=== PATIENT | male | born 1935 | race Caucasian/White ===

== ENCOUNTER 2023-12-27 18:13 | Emergency (ER) | payer OTHER ==
[2023-12-27] MEDS ORDERED: MORPHINE 2 MG/ML SYR ONE (18:43)
[2023-12-27] MEDS ORDERED: NA CHLORIDE 0.9% 1,000 ML ONE ×2 (18:43→19:40)
[2023-12-27 18:59] LABS: Absolute Lymphocytes (CBC) 0.5 K/uL (0.7-4.9); Absolute Monocytes 1.1 K/uL (0.1-1.3); Absolute Neutrophil 10.5 K/uL (1.8-8.0); Basophils % 0.3 % (0-1.3); Hematocrit 33.2 % (39.6-49.0); Hemoglobin 10.6 g/dL (13.6-17.9); Lymphocytes % 4.1 % (15.3-44.8); MPV 8.3 fL (7.6-11.3); Monocytes % 8.8 % (3.3-12.3); Neutrophils % 86.8 % (41.7-73.7); Platelets 208 thou/uL (152-406); RBC Red Blood Cell Count 3.32 M/uL (4.33-5.43); Red Cell Distribution Width 15.7 % (12.1-15.2)
[2023-12-27] MEDS ORDERED: DIAZEPAM 5 MG TABLET ONE (19:06)
[2023-12-27 19:15] LABS: Anion Gap 16.4 mEq/L (5.0-15.0); Potassium 4.4 mEq/L (3.5-5.1)
[2023-12-27] MEDS ORDERED: CEFTRIAXONE 1000 MG/VIAL ONE (19:40)
[2023-12-27] MEDS ORDERED: NA CHLORIDE 0.9% 500 ML ONE (19:40)
--- NOTE | 2023-12-27 20:16 | RAD REPORT ---
[facility] 7[facility]37 pm CLINICAL HISTORY: fall COMPARISON: Chest Single View dated 06/17/2023; Chest Single View dated 06/16/2023; CHEST PA AND LAT 2 V IEW dated 03/25/2014; Head C Spine Cap W Con dated 12/27/2023 TECHNIQUE: Portable AP view of the chest. FINDINGS: Progressive perihilar patchy alveolar and interstitial opacities more so on the right. Sma ll layering effusions again seen. No pneumothorax. The cardiomediastinal contours are unchanged. IMPRESSION: Progressive perihilar patchy alveolar and interstitial opacities with small bilateral ef fusions, concerning for worsening edema.
--- NOTE | 2023-12-27 20:18 | RAD REPORT ---
EXAM DESCRIPTION: Pelvis - 12/27/2023 7:37 pm CLINICAL HISTORY: fall COMPARISON: Head C Spine Cap W Con dated 12/27/2023 TECHNIQUE: Single AP view of the pelvis. FINDINGS: Impacted left femoral neck fracture. Pelvic ring is intact. Right femoral neck is intact. Bilateral hip joint [id number] degenerative changes worse on the right. Vascular calcifications . No focal suspicious osseous lesion. . IMPRESSION: Impacted left femoral neck fracture.
--- NOTE | 2023-12-27 20:19 | RAD REPORT ---
EXAM DESCRIPTION: RAD - Femur Left - 12/27/2023 7:37 pm CLINICAL HISTORY: fall COMPARISON: No comparisons TECHNIQUE: Left femur, 2 views. FINDINGS: Impacted left femoral neck fracture. There is no dislocation or periosteal reaction noted . No acute or suspicious bony finding. IMPRESSION: Impacted left femoral fracture.
[2023-12-27 20:41] LABS: Anisocytosis 1+; Blood Morphology Comment NOTED (NOT SEEN); Platelet Estimate ADEQ; Poikilocytosis 1+; White Blood Cell Scan OK (OK)
[2023-12-27] MEDS ORDERED: MORPHINE 4 MG/ML SYR ONE (21:11)
--- NOTE | 2023-12-27 21:20 | RAD REPORT ---
EXAM DESCRIPTION: CT - Head C Spine Cap W Con - 12/27/2023 8:26 pm CLINICAL HISTORY: fall COMPARISON: Femur Left dated 12/27/2023; Pelvis dated 12/27/2023; Chest Single View dated 12/27/2023 TECHNIQUE: Head and cervical spine CT images were obtained without IV contrast. Chest, abdomen, and pelvis CT images were obtained following intravenous administration of iodinated contrast. Multiplana r reformats were generated and reviewed. All CT scans are performed using dose optimization technique as appropriate and may include automated exposure control or mA/KV adjustment according to patient size. FINDINGS: CT HEAD: No intracranial hemorrhage, mass effect, or edema. No evidence of acute territorial infarct. No midli ne shift or abnormal fluid collection. Mild diffuse parenchymal volume loss. No hydrocephalus. Basal cisterns are patent. Mastoid aircells and paranasal sinuses are clear. No acute skull fracture. CT CERVICAL SPINE: No acute cervical spine fracture or subluxation. Vertebral body heights are well maintained. Moderate multilevel degenerative changes. . No hyperattenuating canal hematoma. Prevertebral and paraspinous soft tissues are unremarkable. CT CHEST: No pneumothorax, or evidence of pulmonary contusion. Moderate cardiomegaly. Patchy airspace opacities in the left apex and central right lung. Dependent segmental opacities in the lower lobes may reflec t atelectasis. Bilateral pleural effusions, moderate on the left and large on the right, with some ev idence of loculation. Pleural thickening and mild enhancement also noted on the left. No mediastinal hematoma and the aorta and pulmonary arteries are unremarkable. No chest will mass or abnormal axilla ry finding. No displaced rib fracture or other significant bony finding. CT ABDOMEN/ PELVIS: No evidence of traumatic injury to solid abdominal viscera. Mild hepatomegaly. Left inguinal hernia c ontaining a short segment of the sigmoid colon. Moderate stool burden. Gallbladder and biliary tree a re unremarkable. No bowel injury or significant finding. No free air, free fluid or abnormal fat stra nding. No urinary bladder abnormality. Left femoral neck fracture at the head/neck junction. Geographic sclerotic reason the subchondral sup erior left femoral head suggesting sequelae of avascular necrosis. IMPRESSION: Left femoral neck fracture at the head/neck junction. Patchy bilateral airspace opacities in the left apex and central right lung, may reflect regional burt ma or multifocal infectious/inflammatory process. Bilateral pleural effusions larger on the right, with some evidence of loculation bilaterally. Pleura l thickening and mild enhancement also noted on the left. Findings raise concern for infectious seque lae or empyema. Other incidental findings as above.
[2023-12-27] MEDS ORDERED: Meropenem 1000 MG/VIAL IV ONE (22:21)
[2023-12-27] MEDS ORDERED: NA CHLORIDE 0.9% 100 ML ONE (22:22)
--- NOTE | 2023-12-27 22:40 | EDPHYS ---
Physician Documentation [facility] Name: Israel Palacio Age: 88 yrs Sex: Male : 1935 Arrival Date: 12/27/2023 Time: 18:13 Bed 4 Private MD: ED Physician Dane Galo HPI: 12/26 21:02 This 88 yrs old Male presents to ER via EMS with complaints of Fall Injury. ec2 21:02 Patient arrives today for evaluation after ground-level fall. Patient reportedly had ec2 fallen yesterday approximately 23 hours prior to arrival. Patient has been down the entire time and is soiled himself. Patient complaining of left hip pain.. Historical: - Allergies: 18:35 PENICILLINS; ap3 18:35 Sulfa (Sulfonamide Antibiotics); ap3 - Home Meds: 18:35 diltiazem HCl 180 mg oral Capsule, ER 24 hr [Active]; warfarin 5 mg Oral tablet ap3 [Active]; lovastatin 40 mg Oral tablet [Active]; diazepam 2 mg Oral tablet [Active]; tamsulosin 0.4 mg oral capsule [Active]; Vitamin D Oral [Active]; Vitamin B-12 Oral [Active]; - Immunization history:: Adult Immunizations unknown. - Infectious Disease History:: Denies. - Social history:: Smoking status: Patient denies any tobacco usage or history of. Patient uses alcohol, occasionally. ROS: 21:02 Constitutional: as per hpi ec2 Exam: 21:02 Constitutional: GEN: No acute distress HEENT: -Head: no deformities -Eyes: EOMI CV: ec2 regular rate LUNGS: no respiratory distress ABD: non-tender SKIN: no wounds appreciated MSK: No C/T/L spine deformities RUE w/o bony deformity LUE w/o bony deformity RLE w/o bony deformity LLE TTP to the left hip NEURO: moves all extremities equally, GCS 15 (E4, V5, M6) Vital Signs: 18:31 Pulse 84; Resp 21; Pulse Ox 91% on 4 lpm NC; Weight 72.57 kg; Height 5 ft. 10 in. ; ap3 Pain 7/10; 18:43 BP 124 / 89; Pulse 91; Resp 21; Pulse Ox 91% on 4 lpm NC; ap3 19:10 BP 136 / 76; Pulse 84; Resp 17 S; Pulse Ox 92% on R/A; ha1 19:11 Temp 97.4(TE); ap3 20:03 BP 141 / 95; Pulse 79; Resp 17 S; Pulse Ox 93% on 4 lpm NC; ha1 22:10 BP 144 / 96; Pulse 84; Resp 17 S; Pulse Ox 95% on R/A; ha1 23:10 BP 154 / 88; Pulse 81; Resp 18 S; Pulse Ox 94% on 5 lpm NC; ha1 18:31 Body Mass Index 22.96 (72.57 kg, 177.8 cm) ap3 18:31 Pain Scale: Adult ap3 Brittany Coma Score: 18:40 Eye Response: spontaneous(4). Motor Response: obeys commands(6). Verbal Response: ap3 oriented(5). Total: 15. Trauma Score (Adult): 18:40 Eye Response: spontaneous(1); Verbal Response: oriented(1); Motor Response: obeys ap3 commands(2); Systolic BP: > 89 mm Hg(4); Respiratory Rate: 10 to 29 per min(4); Brittany Score: 15; Trauma Score: 12 MDM: 18:18 Patient medically screened. ec2 18:35 ED course: EKG independently reviewed and interpreted by me, shows atrial fibrillation, ec2 rate of 93, no acute ST send elevations, nonactionable intervals, marked motion artifact noted. 19:23 ED course: CBC is pertinent for slight leukocytosis. Will add on blood cultures as well ec2 as lactic acid, okay the patient additional crystalloid. . 12/26 18:35 Order name: Basic Metabolic Panel; Complete Time: 19:21 ec2 12/26 18:35 Order name: CBC with Diff; Complete Time: 22:29 ec2 12/26 18:35 Order name: Type And Screen; Complete Time: 20:26 ec2 12/26 18:35 Order name: CK; Complete Time: 19:21 ec2 12/26 19:22 Order name: Blood Culture Adult (2) ec2 12/26 19:22 Order name: Lactate w/ 2H reflex if indic.; Complete Time: 20:36 ec2 12/26 19:53 Order name: ABO/RH no charge; Complete Time: 20:26 EDMS 12/26 20:41 Order name: CBC Smear Scan; Complete Time: 22:29 EDMS 12/26 22:35 Order name: Ghost Lactate-NO COLLECT Timer EDMS 12/26 18:35 Order name: CT Traumagram (Head C Spine CAP W Con); Complete Time: 22:29 ec2 12/26 18:35 Order name: XRAY Chest (1 view); Complete Time: 20:26 ec2 12/26 18:35 Order name: Femur Left XRAY; Complete Time: 20:26 ec2 12/26 18:35 Order name: Pelvis XRAY; Complete Time: 20:26 ec2 12/26 18:35 Order name: Labs collected and sent; Complete Time: 18:54 ec2 Administered Medications: 18:47 CANCELLED (Physician Discretion): morphineor iv 2 mg IVP once over 4 mins ec2 19:10 Drug: NS 0.9% IV 1000 ml IV at 1 bolus Per protocol; 1000 mL bolus Route: IV; Rate: 1 ap3 bolus; Site: right antecubital; 22:00 Follow up: Response: No adverse reaction; IV Status: Completed infusion; IV Intake: ha1 1000ml 19:10 Not Given (Patient Refused): diazepam2 mg IVP once ap3 19:33 Drug: morphine IVP or IV 2 mg IVP once over 4 mins Route: IVP; Infused Over: 4 mins; ha1 Site: right forearm; 20:03 Follow up: Response: No adverse reaction; Pain is decreased; RASS: Alert and Calm (0) ha1 20:35 Drug: Rocephin IV 1 grams IV at calculated rate once; Given slow IV push per pharmacy ha1 instructions Route: IV; Rate: calculated rate; Site: right forearm; 21:00 Follow up: Response: No adverse reaction; IV Status: Completed infusion; IV Intake: [id number] 20:35 Drug: NS 0.9% IV 1500 ml IV at 1 bolus Per protocol; 1000 mL bolus Route: IV; Rate: 1 ha1 bolus; Site: right forearm; 23:55 Follow up: Response: No adverse reaction; IV Status: Completed infusion; IV Intake: ha1 1500ml 21:20 Drug: morphine IVP or IV 4 mg IVP once over 4 mins Route: IVP; Infused Over: 4 mins; ha1 Site: right forearm; 21:50 Follow up: Response: No adverse reaction; RASS: Alert and Calm (0) pc2 22:30 Drug: Meropenem IV 1 grams IV at per protocol once; (mix in NS 100 mL) Route: IV; Rate: pc2 per protocol; Site: right forearm; 23:00 Follow up: Response: No adverse reaction; IV Status: Completed infusion; IV Intake: ha1 100ml Disposition Summary: 12/27/23 22:39 Transfer Ordered Notes: Transfer Location: [facility] richard Reason: Higher level of care richard Condition: Fair richard Problem: new richard Symptoms: are unchanged richard Accepting Physician: ESTEBAN ZAMBRANO(12/28/23 00:02) ha1 Diagnosis - Pneumonia due to other specified bacteria - BILATERAL, RIGHT GREATER THAN LEFT richard - Pleural effusion, not elsewhere classified richard - Elevated white blood cell count richard - Hypoxemia richard - Nonrheumatic aortic (valve) stenosis richard - Displaced fracture of base of neck of left femur richard Discharge Instructions: - Discharge Summary Sheet kmf Forms: - Medication Reconciliation Form kmf - SBAR form kmf Signatures: Dispatcher [employer] EDDane Larry MD MD cha Prokisch, Amanda RN RN ap3 Marjan Mathews, OLGA RN ha1 Driss Velazquez MD MD ec2 Rebecca Parekh, RN RN pc2 Corrections: (The following items were deleted from the chart) 18:35 18:35 BASIC METABOLIC PANEL+C.LAB.BRZ ordered. EDMS EDMS 18:35 18:35 CBC+H.LAB.BRZ ordered. EDMS EDMS 18:35 18:35 TYPE AND SCREEN+BB.LAB.BRZ ordered. EDMS EDMS 18:35 18:35 Urinalysis+U.LAB.BRZ ordered. EDMS EDMS 18:35 18:35 CREATINE PHOSPHOKINASE+C.LAB.BRZ ordered. EDMS EDMS 18:35 18:35 Head C Spine CAP W Con+CT.RAD.BRZ ordered. EDMS EDMS 18:36 18:36 Chest Single View+RAD.RAD.BRZ ordered. EDMS EDMS 18:36 18:36 Femur Left+RAD.RAD.BRZ ordered. EDMS EDMS 18:36 18:36 Pelvis+RAD.RAD.BRZ ordered. EDMS EDMS 18:47 18:42 morphine IVP or IV 2 mg IVP once over 4 mins ordered. ec2 ec2 23: 22:39 TO KENYA ramos cha 12/27 00:02 12/26 23:07 TO KENYA ramos 1
--- NOTE | 2023-12-27 22:40 | ER ---
Nurse's Notes [facility] Name: Israel Palacio Age: 88 yrs Sex: Male : 1935 Arrival Date: 12/27/2023 Time: 18:13 Bed 4 Private MD: Diagnosis: Pneumonia due to other specified bacteria-BILATERAL, RIGHT GREATER THAN LEFT;Pleural effusion, not elsewhere classified;Elevated white blood cell count;Hypoxemia;Nonrheumatic aortic (valve) stenosis;Displaced fracture of base of neck of left femur Presentation: 12/26 18:31 Chief complaint: EMS states: patient fell yesterday at 0 and was on the ground until ap3 the son went to his residence and found him. patient reports he hit his head, and his left forearm on a treadmill. patient currently complains of pain that he rates as a 7/10 on the pain scale, but reports it is a 10/10 at its worst. Coronavirus screen: At this time, the client does not indicate any symptoms associated with coronavirus-19. Ebola Screen: No symptoms or risks identified at this time. Initial Sepsis Screen: Does the patient meet any 2 criteria? RR > 20 per min. Does the patient have a suspected source of infection? No. Patient's initial sepsis screen is negative. Risk Assessment: Do you want to hurt yourself or someone else? Patient reports no desire to harm self or others. Onset of symptoms is unknown. Care prior to arrival: Medication(s) given: Normal saline infusion, 250 Tylenol, 1000mg IV tylenol X's 1 IV initiated. 20 GA, in the right antecubital area, Oxygen administered. via a non-rebreather mask. 18:31 Method Of Arrival: EMS: [facility] ap3 18:31 Acuity: DOMINGO 2 ap3 Triage Assessment: 18:38 General: Appears uncomfortable, Behavior is cooperative, appropriate for age. Pain: ap3 Complains of pain in left hip and left arm Pain currently is 7 out of 10 on a pain scale. at worst was 10 out of 10 on a pain scale. Pain began over the last 24hours. Neuro: Level of Consciousness is awake, alert, obeys commands, Oriented to person, place, time, situation, Speech is normal. Cardiovascular: Patient's skin is warm and dry. Respiratory: Airway is patent Respiratory effort is even, unlabored, Respiratory pattern is regular, symmetrical, tachypnea. Derm: Wound noted left hip and left arm. Historical: - Allergies: 18:35 PENICILLINS; ap3 18:35 Sulfa (Sulfonamide Antibiotics); ap3 - Home Meds: 18:35 diltiazem HCl 180 mg oral Capsule, ER 24 hr [Active]; warfarin 5 mg Oral tablet ap3 [Active]; lovastatin 40 mg Oral tablet [Active]; diazepam 2 mg Oral tablet [Active]; tamsulosin 0.4 mg oral capsule [Active]; Vitamin D Oral [Active]; Vitamin B-12 Oral [Active]; - Immunization history:: Adult Immunizations unknown. - Infectious Disease History:: Denies. - Social history:: Smoking status: Patient denies any tobacco usage or history of. Patient uses alcohol, occasionally. Screenin:40 [facility] ED Fall Risk Assessment (Adult) History of falling in the last 3 months, ap3 including since admission Yes- single mechanical fall (1 pt) Confusion or Disorientation No (0 pts) Intoxicated or Sedated No (0 pts) Impaired Gait Yes (1 pt) Mobility Assist Device Used No (0 pt) Altered Elimination No (0 pt) Score/Fall Risk Level 3 or more points = High Risk Oriented to surroundings, Maintained a safe environment, Educated pt \T\ family on fall prevention, incl call for assistance when getting out of bed, Assessed \T\ reinforced patient's understanding of fall precautions, Provided non-skid footwear, Hourly rounding (assess needs \T\ fall precautionary measures) done, Used ambulatory aids as needed (educated on \T\ assisted with), Used gait belt as appropriate Implemented a Fall Risk Plan of Care, Apply high fall risk patient identification: yellow non skid footwear/ fall signage, Remained w/in arm's length of patient and in sight while toileting, Offered frequent toileting (1:1 observation), Remained with patient while ambulating, Utilized family, sitter, or virtual caddy master as indicated. Abuse screen: Denies threats or abuse. Nutritional screening: No deficits noted. Tuberculosis screening: No symptoms or risk factors identified. Primary Survey: 18:40 NO uncontrolled hemorrhage observed. A: The client is awake and alert. The airway is ap3 patent. Breathing/Chest:. 18:41 Circulation: Hemorrhage: No external hemorrhage noted. Skin color: pink, Skin ap3 temperature: warm, Cardiac rhythm: atrial fibrillation. Disability Client is alert. Exposure/Environment: All clothing and personal items were removed. There is no evidence of uncontrolled external bleeding. left forearm skin tear, left hip wound A warming method has been applied: A warm blanket has been provided to the patient. 19:00 Reassessment Alertness and Airway: Airway Patent Breathing: Spontaneous respiratory ha1 effort, equal unlabored respirations, breath sounds clear bilaterally, regular pattern with symmetrical chest rise and fall. Respiratory effort Spontaneous. Assessment: 19:10 General: Appears uncomfortable, Behavior is calm, cooperative. Pain: Complains of pain ha1 in left arm and left hip Pain does not radiate. Pain currently is 9 out of 10 on a pain scale. Quality of pain is described as aching, sharp, shooting, Pain began suddenly, Aggravated by increased activity, repositioning. Neuro: Level of Consciousness is awake, alert, obeys commands, Oriented to person, place, time, situation. Cardiovascular: Capillary refill < 3 seconds Patient's skin is warm and dry. Respiratory: Airway is patent Respiratory effort is even, unlabored, Respiratory pattern is regular, symmetrical. Derm: Skin is fragile, Skin is moist, Skin is normal, Bruising that is bright red, dark purple, on left hip and left arm. Musculoskeletal: Circulation, motion, and sensation intact. 20:05 Reassessment: Patient and/or family updated on plan of care and expected duration. Pain ha1 level reassessed. Patient is alert, oriented x 3, equal unlabored respirations, skin warm/dry/pink. pain 7/10. 21:10 Reassessment: Patient and/or family updated on plan of care and expected duration. Pain ha1 level reassessed. Patient is alert, oriented x 3, equal unlabored respirations, skin warm/dry/pink. 22:07 Reassessment: Patient and/or family updated on plan of care and expected duration. Pain ha1 level reassessed. Patient is alert, oriented x 3, equal unlabored respirations, skin warm/dry/pink. 23:10 Reassessment: Patient and/or family updated on plan of care and expected duration. Pain ha1 level reassessed. Patient is alert, oriented x 3, equal unlabored respirations, skin warm/dry/pink. 23:12 Reassessment: report given to OLGA Patton. ha1 Vital Signs: 18:31 Pulse 84; Resp 21; Pulse Ox 91% on 4 lpm NC; Weight 72.57 kg; Height 5 ft. 10 in. ; ap3 Pain 7/10; 18:43 BP 124 / 89; Pulse 91; Resp 21; Pulse Ox 91% on 4 lpm NC; ap3 19:10 BP 136 / 76; Pulse 84; Resp 17 S; Pulse Ox 92% on R/A; ha1 19:11 Temp 97.4(TE); ap3 20:03 BP 141 / 95; Pulse 79; Resp 17 S; Pulse Ox 93% on 4 lpm NC; ha1 22:10 BP 144 / 96; Pulse 84; Resp 17 S; Pulse Ox 95% on R/A; ha1 23:10 BP 154 / 88; Pulse 81; Resp 18 S; Pulse Ox 94% on 5 lpm NC; ha1 18:31 Body Mass Index 22.96 (72.57 kg, 177.8 cm) ap3 18:31 Pain Scale: Adult ap3 Brittany Coma Score: 18:40 Eye Response: spontaneous(4). Motor Response: obeys commands(6). Verbal Response: ap3 oriented(5). Total: 15. Trauma Score (Adult): 18:40 Eye Response: spontaneous(1); Verbal Response: oriented(1); Motor Response: obeys ap3 commands(2); Systolic BP: > 89 mm Hg(4); Respiratory Rate: 10 to 29 per min(4); Brittany Score: 15; Trauma Score: 12 ED Course: 18:15 Patient arrived in ED. ap3 18:18 Driss Velazquez MD is Attending Physician. ec2 18:31 Martha Miller RN is Primary Nurse. ap3 18:35 Triage completed. ap3 18:40 Oxygen administration via nasal cannula \T\ 4L/min. Thermoregulation: warm blanket given ap3 to patient. 18:40 Arm band placed on right wrist. ap3 18:43 Patient has correct armband on for positive identification. Placed in gown. Bed in low ap3 position. Call light in reach. Side rails up X2. Adult w/ patient. Provided Education on: use of call light and fall risk education. Client placed on continuous cardiac and pulse oximetry monitoring. NIBP monitoring applied. supervisor slitting and shipping on. Pulse ox on. NIBP on. 18:45 EKG done, by ED staff, reviewed by Driss Velazquez MD. ap3 18:54 Initial lab(s) drawn, by me, sent to lab. ap3 19:00 Maintain EMS IV. Dressing intact. Good blood return noted. Site clean \T\ dry. Gauge \T\ pastor 1 site: 20 RFA. Flushed with 10 mL NS. 19:24 X-ray(s) taken. pc2 19:39 XRAY Chest (1 view) In Process Unspecified. EDMS 19:39 Femur Left XRAY In Process Unspecified. EDMS 19:39 Pelvis XRAY In Process Unspecified. EDMS 20:10 Lactate w/ 2H reflex if indic. Sent. ha1 20:10 Blood Culture Adult (2) Sent. ha1 20:28 CT Traumagram (Head C Spine CAP W Con) In Process Unspecified. EDMS 21:08 Attending Physician role handed off by Driss Velazquez MD richard 21:08 Dane Galo MD is Attending Physician. richard 22:40 dane galo with Jen \T\ [facility] [place] 22:42 pt was accepted to [facility] by Dr. Natasha Padgett \T\ [id number]. Pt will go to the ER. AOC given by [facility] Jen Victor Number for nurse to nurse report [phone]. [facility] to transfer pt. ems declined due too already being on a transfer. 23:58 No provider procedures requiring assistance completed. ha1 12/27 00:00 Patient transferred, IV remains in place. ha1 Administered Medications: 12/26 18:47 CANCELLED (Physician Discretion): morphineor iv 2 mg IVP once over 4 mins ec2 19:10 Drug: NS 0.9% IV 1000 ml IV at 1 bolus Per protocol; 1000 mL bolus Route: IV; Rate: 1 ap3 bolus; Site: right antecubital; 22:00 Follow up: Response: No adverse reaction; IV Status: Completed infusion; IV Intake: ha1 1000ml 19:10 Not Given (Patient Refused): diazepam2 mg IVP once ap3 19:33 Drug: morphine IVP or IV 2 mg IVP once over 4 mins Route: IVP; Infused Over: 4 mins; ha1 Site: right forearm; 20:03 Follow up: Response: No adverse reaction; Pain is decreased; RASS: Alert and Calm (0) ha1 20:35 Drug: Rocephin IV 1 grams IV at calculated rate once; Given slow IV push per pharmacy ha1 instructions Route: IV; Rate: calculated rate; Site: right forearm; 21:00 Follow up: Response: No adverse reaction; IV Status: Completed infusion; IV Intake: [id number] 20:35 Drug: NS 0.9% IV 1500 ml IV at 1 bolus Per protocol; 1000 mL bolus Route: IV; Rate: 1 ha1 bolus; Site: right forearm; 23:55 Follow up: Response: No adverse reaction; IV Status: Completed infusion; IV Intake: ha1 1500ml 21:20 Drug: morphine IVP or IV 4 mg IVP once over 4 mins Route: IVP; Infused Over: 4 mins; ha1 Site: right forearm; 21:50 Follow up: Response: No adverse reaction; RASS: Alert and Calm (0) pc2 22:30 Drug: Meropenem IV 1 grams IV at per protocol once; (mix in NS 100 mL) Route: IV; Rate: pc2 per protocol; Site: right forearm; 23:00 Follow up: Response: No adverse reaction; IV Status: Completed infusion; IV Intake: ha1 100ml Medication: 23:59 VIS not applicable for this client. ha1 Intake: 21:00 IV: 50ml; Total: 50ml. ha1 22:00 IV: 1000ml; Total: 1050ml. ha1 23:00 IV: 100ml; Total: 1150ml. ha1 23:55 IV: 1500ml; Total: 2650ml. ha1 Outcome: 22:39 ER care complete, transfer ordered by MD. ramos 12/27 00:00 Transferred by ground EMS to [facility], Transfer form completed. X-rays sent ha1 w/ patient. Condition: stable 00:02 Patient left the ED. ha1 Signatures: Dispatcher [employer] Dane Saavedra MD MD cha Prokisch, Amanda, RN RN ap3 Marjan Mathews RN RN ha1 Driss Velazquez MD MD ec2 Forrester, Kelsey Maroul [facility] Rebecca Parekh, RN RN pc2 Corrections: (The following items were deleted from the chart) 00:11 12/26 23:20 dane galo with Jen \T\ [facility] kmf kmf
[2023-12-28 00:42] VITALS: TEMP 97.4
[2023-12-28 00:47] VITALS: BP 154/88; O2SAT 94
--- NOTE | 2023-12-28 16:58 | EKG ---
Test Date: 2023-12-27 Test Time: 18:27:21 Coke Drawer: ALP MEASUREMENT RESULTS: Intervals: Rate: 93 LA: QRSD: 140 QT: 434 QTc: 539 Mead: P: LA: QRS: -5 T: 62 INTERPRETIVE STATEMENTS: Atrial fibrillation Left bundle branch block Abnormal ECG Compared to ECG 06/16/2023 09:06:04 Left bundle-branch block now present Electronically Signed On 12-28-23 16:56:09 CDT by Noah Millan
== END 2023-12-28 00:02 | disposition short-term general hospital (02) ==
LOC: ER 18:13
DX: S72.042A Displaced fracture of base of neck of left femur, initial encounter for closed fracture (principal); J15.8 Pneumonia due to other specified bacteria; J91.8 Pleural effusion in other conditions classified elsewhere; R09.02 Hypoxemia; D72.829 Elevated white blood cell count, unspecified; I35.0 Nonrheumatic aortic (valve) stenosis; W18.30XA Fall on same level, unspecified, initial encounter; Z79.01 Long term (current) use of anticoagulants
CPT/HCPCS: 96365; 96367; 96361; 93005; 87040 ×2; 85025; 80048; 36415; 86900; 86850; 82550; 86901; 83605 ×2; 70450; 72125; 71260; 74177; 71045; 72170; 73552; 96375; 99285; Q9967; J2270; J2185; J7040; J7030 ×2; J0696

== ENCOUNTER 2024-01-12 09:37 | Emergency (ER) | payer OTHER ==
[2024-01-12] MEDS ORDERED: MORPHINE 2 MG/ML SYR ONE (10:24)
[2024-01-12 10:34] LABS: Absolute Basophils 0.1 K/uL (0-0.5); Absolute Monocytes 1.3 K/uL (0.1-1.3); Absolute Neutrophil 14.4 K/uL (1.8-8.0); Basophils % 0.3 % (0-1.3); Eosinophils % 0.1 % (0-4.4); Hematocrit 11.2 % (39.6-49.0); MCH 31.9 pg (27.0-35.0); MCHC 30.7 g/dL (32.0-36.0); MCV 103.8 fL (80-100); MPV 7.9 fL (7.6-11.3); Monocytes % 7.7 % (3.3-12.3); Neutrophils % 85.9 % (41.7-73.7); Nucleated RBC Absolute Count 0.4 (0-0); Nucleated Red Blood Cells % 2.2 % (0-0); Platelets 282 thou/uL (152-406); RBC Red Blood Cell Count 1.08 M/uL (4.33-5.43); Red Cell Distribution Width 20.1 % (12.1-15.2)
[2024-01-12 10:36] LABS: Hemoglobin 3.4 g/dL (13.6-17.9)
[2024-01-12 10:40] LABS: PTT, Activated Partial Thromb 46.3 SECONDS (24.3-36.9); Protime INR 5.05
[2024-01-12 10:42] LABS: SARS-CoV-2 Antigen CONTROL BLUE LINE VIS/BG OK; SARS-CoV-2 Antigen Rapid Res Negative (Negative)
[2024-01-12 10:50] LABS: Sqamous Epithelial None Seen /HPF (None Seen); Urine Bacteria None Seen /HPF (<20); Urine Bilirubin NEGATIVE (Negative); Urine Blood Negative (Negative); Urine Clarity Turbid (Clear); Urine Color Yellow (Yellow); Urine Culture Reflex Order NOT NEEDED; Urine Glucose NEGATIVE (Negative); Urine Ketones NEGATIVE (Negative); Urine Microscopic Reflex YN ORDER UMIC; Urine Mucus Slight /HPF (None Seen); Urine Nitrite NEGATIVE (Negative); Urine Protein TRACE (Negative); Urine RBC <5 /HPF (None Seen); Urine Urobilinogen 2+ (Normal); Urine WBC <5 /HPF (<5)
[2024-01-12 11:01] LABS: Band Neutrophils 2 % (0-1); Differential Total Cells Count 100; Lymphocytes 6 % (15-42); Monocytes 1 % (0-10); Nucleated Red Blood Cells 1 /100WBC; Platelet Estimate ADEQ; Platelets, Giant NOTED; Segmented Neutrophils 91 % (40-80)
[2024-01-12 11:02] LABS: Anisocytosis 1+; Blood Morphology Comment NOTED (NOT SEEN); Hypochromasia 2+; Polychromasia 2+
--- NOTE | 2024-01-12 11:18 | RAD REPORT ---
EXAM DESCRIPTION: CT - Chest For Pe Angio - 01/12/2024 10:55 am CLINICAL HISTORY: Chest pain COMPARISON: None. TECHNIQUE: Dynamically enhanced axial 3 mm thick images of the chest were obtained during administra tion of 100 mL Isovue 370 IV contrast. Coronal and oblique reconstruction images were generated and r eviewed. Exam utilizes a protocol for optimal evaluation of pulmonary arterial tree. Maximum intensity projections 3D imaging was utilized All CT scans are performed using dose optimization technique as appropriate and may include automated exposure control or mA/KV adjustment according to patient size. FINDINGS: Recent aortic valve replacement. A pulmonary embolus is not seen. A thoracic aortic aneurysm is not noted. Small to moderate right hydropneumothorax. Small left pleural effusion. Mild interstitial pulmonary edema. Bilateral lower lobe atelectasis IMPRESSION: Negative for a pulmonary embolism. Small to moderate right hydropneumothorax Mild interstitial pulmonary edema
--- NOTE | 2024-01-12 11:19 | RAD REPORT ---
EXAM DESCRIPTION: Yue Single View01/12/2024 10:30 am CLINICAL HISTORY: Shortness of breath COMPARISON: December 2023 FINDINGS: Aortic valve replacement. Cardiomegaly. Small to moderate right and small left pleural effusions Mild interstitial pulmonary edema
[2024-01-12 11:28] LABS: Albumin 2.2 g/dL (3.4-5.0); Albumin/Globulin Ratio 0.6 (1.1-1.8); Anion Gap 10.7 mEq/L (5.0-15.0); Bilirubin Total 1.2 mg/dL (0.2-1.0); Potassium 3.7 mEq/L (3.5-5.1); Protein, Total 6.2 g/dL (6.4-8.2); Troponin High Sensitivity 14.5 pg/mL (<58.9)
[2024-01-12] MEDS ORDERED: Levofloxacin500mg IV 500 MG/100 ML BAG IV ONE (11:57)
--- NOTE | 2024-01-12 12:10 | EDPHYS ---
Physician Documentation [facility] Name: Israel Palacio Age: 88 yrs Sex: Male : 1935 Arrival Date: 01/12/2024 Time: 09:37 Bed 2 Private MD: ED Physician Miracle Diaz HPI: 01/11 10:01 This 88 yrs old Male presents to ER via EMS with complaints of General Weakness. 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 He is now here locally at rehab facility. Today he was found to have generalized weakness and transient low blood pressure which point local facility activated EMS to bring him to the ER. You currently endorses generalized weakness and nausea but denies any pain or any other symptoms. On review of systems he denies headache, fever, URI symptoms, chest pain, shortness of breath abdominal pain, rash, or any other signs or symptoms on ROS at this time.. Historical: - Allergies: 09:46 PENICILLINS; rs5 09:46 Sulfa (Sulfonamide Antibiotics); rs5 - PMHx: 09:46 Atrial fibrillation; Hypertensive disorder; Anemia; left femur fracture; rs5 - PSHx: 09:46 left hip surgery; aortic valve surgery; rs5 - Immunization history:: Adult Immunizations up to date. - Infectious Disease History:: Denies. - Social history:: Smoking status: Patient/guardian denies using tobacco, but has a distant history of tobacco abuse. ROS: 10:05 Constitutional: Negative for fever, chills, and weight loss, Eyes: Negative for injury, sp3 pain, redness, and discharge, Neck: Negative for injury, pain, and swelling, Cardiovascular: Negative for chest pain, palpitations, and edema, Respiratory: Negative for shortness of breath, cough, wheezing, and pleuritic chest pain, Back: Negative for injury and pain, MS/Extremity: Negative for injury and deformity, Skin: Negative for injury, rash, and discoloration, Psych: Negative for depression, anxiety, suicide ideation, homicidal ideation, and hallucinations, Allergy/Immunology: Negative for hives, rash, and allergies, Endocrine: Negative for neck swelling, polydipsia, polyuria, polyphagia, and marked weight changes, 10:05 All other systems are negative, Exam: 10:05 Constitutional: This is a well developed, well nourished patient who is awake, alert, sp3 and in no acute distress. Head/Face: Normocephalic, atraumatic. Eyes: Pupils equal round and reactive to light, extra-ocular motions intact. Lids and lashes normal. Conjunctiva and sclera are non-icteric and not injected. Cornea within normal limits. Periorbital areas with no swelling, redness, or edema. Neck: Trachea midline, no thyromegaly or masses palpated, and no cervical lymphadenopathy. Supple, full range of motion without nuchal rigidity, or vertebral point tenderness. No Meningismus. Chest/axilla: Normal chest wall appearance and motion. Nontender with no deformity. No lesions are appreciated. Cardiovascular: Regular rate and rhythm with a normal S1 and S2. No gallops, murmurs, or rubs. Normal PMI, no JVD. No pulse deficits. Respiratory: Lungs have equal breath sounds bilaterally, clear to auscultation and percussion. No rales, rhonchi or wheezes noted. No increased work of breathing, no retractions or nasal flaring. Abdomen/GI: Soft, non-tender, with normal bowel sounds. No distension or tympany. No guarding or rebound. No evidence of tenderness throughout. Neuro: Awake and alert, GCS 15, oriented to person, place, time, and situation. Cranial nerves II-XII grossly intact. Motor strength 5/5 in all extremities. Sensory grossly intact. Cerebellar exam normal. Normal gait. Psych: Awake, alert, with orientation to person, place and time. Behavior, mood, and affect are within normal limits. 10:05 Skin: Diffusely pale without rash. 10:25 ECG was reviewed by the Attending Physician. EKG demonstrates atrial fibrillation with sp3 left bundle branch block unchanged from prior EKG dated December 2023. Vital Signs: 09:42 BP 130 / 59; Pulse 93; Resp 17; Pulse Ox 97% on 2 lpm NC; rs5 09:54 Temp 98.7; rs5 13:10 BP 115 / 54; Pulse 74; Resp 19; Temp 96.7(TE); Pulse Ox 100% on 2 lpm NC; rs5 13:30 BP 115 / 59; Pulse 78; Resp 17; Temp 96.9(TE); Pulse Ox 99% on 2 lpm NC; rs5 13:35 BP 112 / 57; Pulse 72; Resp 18; Temp 96.8; Pulse Ox 99% on 2 lpm NC; rs5 13:40 BP 111 / 51; Pulse 77; Resp 18; Temp 96.8(TE); Pulse Ox 100% on 2 lpm NC; rs5 16:30 BP 108 / 61; Pulse 70; Resp 16; Temp 96.8; Pulse Ox 99% ; rs5 16:35 BP 114 / 61; Pulse 74; Resp 17; Temp 96.7; Pulse Ox 99% on 2 lpm NC; rs5 16:45 BP 112 / 65; Pulse 70; Resp 18; Temp 96.7; Pulse Ox 99% on 2 lpm NC; rs5 16:50 BP 107 / 58; Pulse 77; Resp 16; Temp 96.8(O); Pulse Ox 100% ; rs5 16:55 BP 109 / 62; Pulse 77; Resp 17; Temp 96.7; Pulse Ox 100% on 2 lpm NC; rs5 MDM: 09:44 Patient medically screened. sp3 10:05 Data reviewed: vital signs, nurses notes, old medical records, lab test result(s), EKG, sp3 radiologic studies. ED course: 88-year-old male with PMH above and recent surgery now here with generalized weakness. Will obtain full workup including cultures, labs, EKG, CT chest for PE, and general supportive care. Here vital signs are normal. Patient does endorse some nausea but did receive Zofran IV by EMS and is feeling a little bit better. Disposition probable admission once workup is complete and diagnosis is more narrowed. Patient is on enoxaparin at rehab facility to anticoagulate for his atrial fibrillation.. 10:43 ED course: Hemoglobin came back at 3.4. We will transfuse 2 units the patient admitted sp3 after workup is complete.. 12:48 ED course: Patient will be transferred to [facility] for GI evaluation. sp3 Hospitalist here at this facility Dr. Gonzalez evaluated and suggests that he will be more comfortable with GI on the case. After talking to family we feel that it is best to go back to [facility] since they are familiar with his recent surgeries.. 01/11 10:36 Order name: Type And Screen aa5 01/11 09:57 Order name: Blood Culture Adult (2) sp3 01/11 09:57 Order name: CBC with Diff; Complete Time: 11:31 sp3 01/11 09:57 Order name: CMP; Complete Time: 11:31 sp3 01/11 09:57 Order name: Lactate w/ 2H reflex if indic.; Complete Time: 11:31 sp3 01/11 09:57 Order name: Protime (+inr); Complete Time: 11:31 sp3 01/11 09:57 Order name: Ptt, Activated; Complete Time: 11:31 sp3 01/11 09:57 Order name: Urinalysis w/ reflexes; Complete Time: 11:31 sp3 01/11 09:57 Order name: Troponin High Sensitivity; Complete Time: 11:31 sp3 01/11 09:57 Order name: Flu; Complete Time: 11:31 sp3 01/11 09:57 Order name: SARS RAPID; Complete Time: 11:31 sp3 01/11 10:38 Order name: Manual Differential; Complete Time: 11:31 EDMS 01/11 11:39 Order name: Packed RBC Leukored EDMS 01/11 09:57 Order name: Chest Single View XRAY; Complete Time: 11:31 sp3 01/11 10:06 Order name: CT Chest For PE Angio; Complete Time: 11:31 sp3 01/11 13:06 Order name: CT Abd/Pelvis - IV Contrast Only; Complete Time: 14:27 sp3 01/11 09:57 Order name: Cardiac monitoring; Complete Time: 10:24 sp3 01/11 09:57 Order name: EKG - Nurse/Tech; Complete Time: 10:24 sp3 01/11 09:57 Order name: IV Saline Lock - Large Bore; Complete Time: 10:24 sp3 01/11 09:57 Order name: Labs collected and sent; Complete Time: 10:24 sp3 01/11 09:57 Order name: O2 Per Protocol; Complete Time: 10:24 sp3 01/11 09:57 Order name: O2 Sat Monitoring; Complete Time: 10:24 sp3 01/11 09:57 Order name: Vital Signs; Complete Time: 10:24 sp3 01/11 10:37 Order name: Transfuse: 2 units PRBC; Complete Time: 16:50 sp3 Administered Medications: 12:03 Drug: levofloxacin IVPB 500 mg 100 ml IVPB once over 60 mins Volume: 100 ml; Route: rs5 IVPB; Infused Over: 60 mins; Site: left antecubital; 13:05 Follow up: Response: No adverse reaction; IV Status: Completed infusion rs5 15:51 Drug: morphine IVP or IV 4 mg IVP once over 4 mins Route: IVP; Infused Over: 4 mins; rs5 Site: left antecubital; 16:05 Follow up: Response: No adverse reaction; Pain is decreased rs5 Disposition Summary: 01/12/24 12:48 Transfer Ordered Notes: Transfer Location: [facility] sp3 Reason: Higher level of care sp3 Condition: Stable(01/12/24 12:48) sp3 Problem: an acute exacerbation(01/12/24 12:48) sp3 Symptoms: have worsened(01/12/24 12:48) sp3 Accepting Physician: Sco[facility], [facility](01/12/24 17:01) ph Diagnosis - New critical anemia of unknown etiology, leukocytosis/infection of unknown etiology sp3 Forms: - Medication Reconciliation Form sp3 - SBAR form sp3 Critical care time excluding procedures: 10:44 Critical care time: Bedside Care: 15 minutes, Family Intervention: 15 minutes. Total sp3 time: 30 minutes Signatures: Dispatcher [employer] Edie Hayes RN RN ph Miracle Diaz MD MD sp3 Rod Anaya RN RN rs5 Corrections: (The following items were deleted from the chart) 09:58 09:58 BLOOD CULTURE*+BA.LAB.BRZ ordered. EDMS EDMS 09:58 09:58 CBC+H.LAB.BRZ ordered. EDMS EDMS 09:58 09:58 COMPREHENSIVE METABOLIC PANEL+C.LAB.BRZ ordered. EDMS EDMS 09:58 09:58 LACTATE+C.LAB.BRZ ordered. EDMS EDMS 09:58 09:58 PROTIME (+INR)+COAG.LAB.BRZ ordered. EDMS EDMS 09:58 09:58 PTT, ACTIVATED+COAG.LAB.BRZ ordered. EDMS EDMS 09:58 09:58 Urinalysis+U.LAB.BRZ ordered. EDMS EDMS 09:58 09:58 Troponin High Sensitivity+C.LAB.BRZ ordered. EDVT EDMS 09:58 09:58 Chest Single View+RAD.RAD.BRZ ordered. EDVT EDMS 09:58 09:58 Influenza Screen (A \T\ B)+BA.LAB.BRZ ordered. EDVT EDMS 09:58 09:58 SARS-COV-2 Antigen Rapid+I.LAB.BRZ ordered. EDVT EDMS 10:26 10:05 ED course: 88-year-old male with PMH above and recent surgery now here with sp3 generalized weakness. Will obtain full workup including cultures, labs, EKG, CT chest for PE, and general supportive care. Here vital signs are normal. Patient does endorse some nausea but did receive Zofran IV by EMS and is feeling a little bit better. Disposition probable admission once workup is complete and diagnosis is more narrowed.. sp3 11:39 10:37 PACKED RBC LEUKORED+BB.LAB.BRZ ordered. EDVT EDMS 11:39 10:40 ABO/RH typing ordered. EDVT EDMS 11:39 10:40 Antibody Screen ordered. EDVT EDMS 12:43 12:09 Inpatient Admission sp3 sp3 12:43 12:09 Brianne Infante sp3 sp3 12:43 12:09 Telemetry/MedSurg (Inpatient) sp3 sp3 12:43 12:09 Stable sp3 sp3 12:43 12:09 an acute exacerbation sp3 sp3 12:43 12:09 have worsened sp3 sp3 12:43 12:09 Standard sp3 sp3 12:43 12:09 sp3 sp3 12:43 12:09 Anemia, leukocytosis, possible sepsis sp3 sp3 12:48 12:[facility] sp[facility] 17:01 12[facility] ph
--- NOTE | 2024-01-12 12:10 | ER ---
Nurse's Notes [facility] Name: Israel Palacio Age: 88 yrs Sex: Male : 1935 Arrival Date: 01/12/2024 Time: 09:37 Bed 2 Private MD: Diagnosis: New critical anemia of unknown etiology, leukocytosis/infection of unknown etiology Presentation: 01/11 09:42 Chief complaint: EMS states: [facility] toned out EMS for low BP, 90's rs5 systolic, nausea, and generalized weakness. Pt underwent left hip surgery and aortic valve surgery 2 weeks ago. Coronavirus screen: At this time, the client does not indicate any symptoms associated with coronavirus-19. Ebola Screen: No symptoms or risks identified at this time. Initial Sepsis Screen: Does the patient meet any 2 criteria? No. Patient's initial sepsis screen is negative. Does the patient have a suspected source of infection? No. Patient's initial sepsis screen is negative. Risk Assessment: Do you want to hurt yourself or someone else? Patient reports no desire to harm self or others. Onset of symptoms was January 12, 2024. 09:42 Method Of Arrival: EMS: [facility] rs5 09:42 Acuity: DOMINGO 3 rs5 09:43 Care prior to arrival: Medication(s) given: zofran 4 mg. rs5 Historical: - Allergies: 09:46 PENICILLINS; rs5 09:46 Sulfa (Sulfonamide Antibiotics); rs5 - PMHx: 09:46 Atrial fibrillation; Hypertensive disorder; Anemia; left femur fracture; rs5 - PSHx: 09:46 left hip surgery; aortic valve surgery; rs5 - Immunization history:: Adult Immunizations up to date. - Infectious Disease History:: Denies. - Social history:: Smoking status: Patient/guardian denies using tobacco, but has a distant history of tobacco abuse. Screenin:54 [facility] ED Fall Risk Assessment (Adult) History of falling in the last 3 months, ph including since admission Yes- single mechanical fall (1 pt) Confusion or Disorientation No (0 pts) Intoxicated or Sedated No (0 pts) Impaired Gait Yes (1 pt) Mobility Assist Device Used Yes (1 pt) Altered Elimination Yes (1 pt) Score/Fall Risk Level 3 or more points = High Risk Oriented to surroundings, Maintained a safe environment, Used ambulatory aids as needed (educated on \T\ assisted with). Abuse screen: Denies threats or abuse. Denies injuries from another. Nutritional screening: No deficits noted. Tuberculosis screening: No symptoms or risk factors identified. Assessment: 09:43 General: Appears in no apparent distress. uncomfortable, Behavior is calm, cooperative. rs5 Pain: Denies pain. Neuro: Level of Consciousness is awake, alert, obeys commands, Oriented to person, place, time, situation. Cardiovascular: Patient's skin is warm and dry. Respiratory: Airway is patent Respiratory effort is even, unlabored, Respiratory pattern is regular, symmetrical. GI: Abdomen is round non-distended, Abd is soft and non tender X 4 quads. : Marcus in place to gravity drainage. EENT: No signs and/or symptoms were reported regarding the EENT system. Derm: Skin is intact, Skin is dry, Skin is normal, Skin temperature is warm 4 inch sutured incision noted to left hip, appears clean and uncontaminated. no redness or signs of infection noted. non-adherent dressing applied to site and secured with tape. Musculoskeletal: pt reports generalized weakness. 10:45 Reassessment: to bedside, blood product transfusion consent form signed by pt and rs5 provider . 11:01 Reassessment: Patient and/or family updated on plan of care and expected duration. Pain rs5 level reassessed. Patient is alert, oriented x 3, equal unlabored respirations, skin warm/dry/pink. 12:10 Reassessment: No changes from previously documented assessment. rs5 13:40 Reassessment: Patient and/or family updated on plan of care and expected duration. Pain rs5 level reassessed. Patient is alert, oriented x 3, equal unlabored respirations, skin warm/dry/pink. to bedside for blood transfusion, rate started at 50 ml/hr for first 15 min, remained with pt for first 15 min, no adverse reaction noted. rate increased to 150 ml/hr. see blood product transfusion record for more information. . 14:58 Reassessment: Patient and/or family updated on plan of care and expected duration. Pain rs5 level reassessed. Patient is alert, oriented x 3, equal unlabored respirations, skin warm/dry/pink. 15:45 Reassessment: provider notified pt is experiencing pain. Pain: Complains of pain in rs5 left hip Pain currently is 8 out of 10 on a pain scale. Quality of pain is described as aching, Is continuous. 16:30 Reassessment: Patient and/or family updated on plan of care and expected duration. Pain rs5 level reassessed. Patient is alert, oriented x 3, equal unlabored respirations, skin warm/dry/pink. Patient states feeling better. Patient states symptoms have improved. blood product transfusion complete, flushed with 10 cc normal saline, no adverse reaction noted, see blood product transfusion record form for more information.. 17:00 Reassessment: to bedside for second unit blood transfusion,, transfusion started \T\[id number] rs5 remained with pt for first 15 min of transfusion, rate started at 50 ml/hr, no adverse reaction noted, rate increased to 150 ml/hr, see blood product transfusion record for more information. . 17:01 Reassessment: Patient and/or family updated on plan of care and expected duration. Pain rs5 level reassessed. Patient is alert, oriented x 3, equal unlabored respirations, skin warm/dry/pink. Report given to EMS at bedside, blood product checked by EMS and myself. Vital Signs: 09:42 BP 130 / 59; Pulse 93; Resp 17; Pulse Ox 97% on 2 lpm NC; rs5 09:54 Temp 98.7; rs5 13:10 BP 115 / 54; Pulse 74; Resp 19; Temp 96.7(TE); Pulse Ox 100% on 2 lpm NC; rs5 13:30 BP 115 / 59; Pulse 78; Resp 17; Temp 96.9(TE); Pulse Ox 99% on 2 lpm NC; rs5 13:35 BP 112 / 57; Pulse 72; Resp 18; Temp 96.8; Pulse Ox 99% on 2 lpm NC; rs5 13:40 BP 111 / 51; Pulse 77; Resp 18; Temp 96.8(TE); Pulse Ox 100% on 2 lpm NC; rs5 16:30 BP 108 / 61; Pulse 70; Resp 16; Temp 96.8; Pulse Ox 99% ; rs5 16:35 BP 114 / 61; Pulse 74; Resp 17; Temp 96.7; Pulse Ox 99% on 2 lpm NC; rs5 16:45 BP 112 / 65; Pulse 70; Resp 18; Temp 96.7; Pulse Ox 99% on 2 lpm NC; rs5 16:50 BP 107 / 58; Pulse 77; Resp 16; Temp 96.8(O); Pulse Ox 100% ; rs5 16:55 BP 109 / 62; Pulse 77; Resp 17; Temp 96.7; Pulse Ox 100% on 2 lpm NC; rs5 ED Course: 09:42 Patient arrived in ED. rs5 09:42 Miracle Diaz MD is Attending Physician. sp3 09:46 Triage completed. rs5 09:54 Edie Chaparro, RN is Primary Nurse. ph 09:54 Arm band placed on Patient placed in an exam room, on a stretcher. ph 09:54 Patient has correct armband on for positive identification. Placed in gown. Bed in low ph position. Call light in reach. Side rails up X2. Client placed on continuous cardiac and pulse oximetry monitoring. NIBP monitoring applied. monitoring coordinator on. Door closed. Noise minimized. Warm blanket given. Pillow given. 09:56 No provider procedures requiring assistance completed. rs5 10:32 Chest Single View XRAY In Process Unspecified. EDMS 10:57 CT Chest For PE Angio In Process Unspecified. EDMS 11:39 Rod Anaya, RN is Primary Nurse. rs5 12:08 Brianne Infante MD is Hospitalizing Provider. sp3 12:23 1223 CM met with , his son Barrington, and daughter in-law Brittaney, at the bedside in ane the ED exam room. Patient identified by name and . Demographic sheet confirmed. states he normally lives alone in a single story home .No MPOA in place at this time. He reports that prior to admission, he performs ADLs independently and without physical limitations, using a walker only on occasion. He states he has no HH, home oxygen or other DME. He was recently admitted to [facility] for SNF .Both Barrington and wish for him to return to [facility] to continue PT, regain strength and ultimately return to his home upon discharge. CM team will continue to follow and coordinate care. 1236 CM confirmed with Supriya from [facility], that was admitted to [facility] late Tuesday, January 06, 2024 and was only able to participate in 2 PT sessions. 12:31 at the bedside to discuss plan of care. ane 13:19 CT Abd/Pelvis - IV Contrast Only In Process Unspecified. EDMS 16:41 CM sent message to Supriya at [facility] to inform her of new orders for transfer, ane awaiting response. 17:00 Patient transferred, IV remains in place. rs5 Administered Medications: 12:03 Drug: levofloxacin IVPB 500 mg 100 ml IVPB once over 60 mins Volume: 100 ml; Route: rs5 IVPB; Infused Over: 60 mins; Site: left antecubital; 13:05 Follow up: Response: No adverse reaction; IV Status: Completed infusion rs5 15:51 Drug: morphine IVP or IV 4 mg IVP once over 4 mins Route: IVP; Infused Over: 4 mins; rs5 Site: left antecubital; 16:05 Follow up: Response: No adverse reaction; Pain is decreased rs5 Medication: 09:54 VIS not applicable for this client. ph Outcome: 12:09 Decision to Hospitalize by Provider. sp3 12:48 ER care complete, transfer ordered by . sp3 17:00 Transferred by ground EMS Transfer form completed. X-rays sent w/ patient. rs5 17:00 Condition: stable 17:00 Instructed on the need for transfer, Demonstrated understanding of instructions, 17:01 Patient left the ED. ph Signatures: Dispatcher [employer] EDPR Edie Chaparro RN RN ph Miracle Diaz MD MD sp3 Rod Anaya RN RN rs5 Marie Hayes RN RN ane Corrections: (The following items were deleted from the chart) 17:03 13:40 Reassessment: Patient and/or family updated on plan of care and expected rs5 duration. Pain level reassessed. Patient is alert, oriented x 3, equal unlabored respirations, skin warm/dry/pink. to bedside for blood transfusion, rate started at 50 ml/hr for first 15 min, remained with pt for first 15 min, no adverse reaction noted. rate increased to 150 ml/hr. rs5 17:04 15:45 Reassessment: rs5 rs5 17:04 16:30 Reassessment: blood product transfusion complete, flushed with 10 cc normal rs5 saline, no adverse reaction noted, see blood product transfusion record form for more information.. rs5
[2024-01-12] MEDS ORDERED: NA CHLORIDE 0.9% 250 ML ONE ×2 (13:03→16:25)
--- NOTE | 2024-01-12 14:23 | RAD REPORT ---
EXAM DESCRIPTION: CT - Abdomen Pelvis W Contrast - 01/12/2024 1:17 pm CLINICAL HISTORY: drop in hgb COMPARISON: Chest For Pe Angio dated 01/12/2024; Lumbar Spine Wo Con dated 08/26/2016; Hip Left 2 View dated 06/10/2016 TECHNIQUE: Thin cut axial CT imaging of the abdomen and pelvis was performed following intravenous a dministration of 65 mL Isovue 300. Multiplanar reformats were generated and reviewed. All CT scans are performed using dose optimization technique as appropriate and may include automated exposure control or mA/KV adjustment according to patient size. FINDINGS: Moderate bilateral pleural effusions, larger on the right, with underlying segmental depen dent airspace opacification, stable, and likely representing atelectasis. Pleural thickening and line ar enhancement on the left. Partially visualized prostatic aortic valve. . The liver, spleen, adrenal glands, and pancreas show no suspicious findings. Gallbladder and biliary tree are also without suspicious finding. Symmetric renal function is seen with no hydronephrosis or suspicious renal mass. Contrast excretion within both renal collecting systems, limits evaluation for calculi. No dilated bowel loops or bowel wall thickening. No free air, free fluid or inflammatory stranding. M oderate to large stool burden throughout the colon. Left inguinal hernia containing a short segment o f the proximal sigmoid colon. No suspicious mass or bulky lymphadenopathy. The urinary bladder is dec ompressed, with Marcus catheter in place. No suspicious bony findings. Left total hip arthroplasty hardware in place which results in streak ar tifact, somewhat limiting evaluation in the pelvis. IMPRESSION: Stable bilateral pleural effusions, with left pleural thickening and linear enhancement, which may be reactive or related to an empyema. No acute process in the abdomen and pelvis. Moderate to large stool burden throughout the colon. Left inguinal hernia containing a short segment of the proximal sigmoid colon.
[2024-01-12] MEDS ORDERED: MORPHINE 4 MG/ML SYR ONE (15:43)
[2024-01-12 17:11] VITALS: TEMP 96.8
[2024-01-12 17:13] VITALS: BP 111/51; O2SAT 100
--- NOTE | 2024-01-12 19:37 | P.CNS ---
Date of Consult: 01/12/24 Reason for Consult: Severe Anemia Requesting Physician: varghese olson Chief Complaint: Weakness and severe anemia History of Present Illness: Israel Palacio is an 88 year old male with Pmhx atrial fibrillation, hypertension, left hip replacement and mitral valve replacement on January 05 at [facility]. He presented to the ED with chief complaint of generalized weakness. On evaluation his H/H 3.4/11.2. Upon arrival, he is on 2 L nasal cannula, lethargic, and pale skin. Left hip replacement with dressing in place showing bruising, erythema, and solid formation likely hematoma present. Severe anemia will require gastrointestinal evaluation. Significant laboratory evaluation showing WBC 16.8, INR 5.05, H&H 3.4/11.2, sodium 134 Initial vitals BP 130 / 59; Pulse 93; Resp 17; Pulse Ox 97% on 2 lpm NC Chest x-ray reports "Aortic valve replacement. Cardiomegaly. Small to moderate right and small left pleural effusions. Mild interstitial pulmonary edema." CT chest angio reports "Recent aortic valve replacement. A pulmonary embolus is not seen. A thoracic aortic aneurysm is not noted. Small to moderate right hydropneumothorax. Small left pleural effusion. Mild interstitial pulmonary edema. Bilateral lower lobe atelectasis IMPRESSION: Negative for a pulmonary embolism. Small to moderate right hydropneumothorax. Mild interstitial pulmonary edema." CT abdomen pelvis with contrast reports "Stable bilateral pleural effusions, with left pleural thickening and linear enhancement, which may be reactive or related to an empyema. No acute process in the abdomen and pelvis. Moderate to large stool burden throughout the colon.Left inguinal hernia containing a short segment of the proximal sigmoid colon." Due to lack of gastrointestinal services today, Dr. Olson requests transfer to facility with available GI. Allergies Penicillins Allergy (Intermediate, Verified 04/02/14 18:03) seecom Home Medications: Diltiazem HCl [Diltiazem 24Hr Cd] 180 mg PO DAILY 04/02/14 Lovastatin [Mevacor*] 40 mg PO BEDTIME 04/02/14 Warfarin Sodium [Coumadin*] 5 mg PO SEECOM 04/02/14 Warfarin Sodium [Coumadin*] 7.5 mg PO SEECOM 04/02/14 diazePAM [Valium] 2 mg PO PRN PRN 04/02/14 Tamsulosin [Flomax*] 0.4 mg PO DAILY 06/16/23 Furosemide [Lasix] 40 mg PO DAILY #30 tab 06/17/23 Potassium Chloride 20 meq PO DAILY #7 tab 06/17/23 - Past Medical/Surgical History Diabetic: No -: afib -: RLS -: hernia -: hernia -: rotator cuff repair - Family History Father Notes: unkn Mother Medical History: Stroke - Social History Smoking Status: Former smoker Alcohol use: No CD- Drugs: No Caffeine use: Yes Review of Systems General: Weakness Integumentary: Other (dizziness) Physical Examination Temp Pulse Resp BP Pulse Ox 96.8 F 77 18 111/51 L 01/12/24 13:40 01/12/24 13:40 01/12/24 13:40 01/12/24 13:40 General: In no apparent distress, Oriented x3, Other (lethargic) HEENT: Atraumatic, Normocephalic, PERRLA Neck: Supple, 2+ carotid pulse no bruit, JVD not distended Respiratory: Clear to auscultation bilaterally, Normal air movement Cardiovascular: Normal pulses, Regular rate/rhythm, Normal S1 S2 Gastrointestinal: Rigidity, Distended Musculoskeletal: No clubbing Integumentary: No rashes Neurological: Normal speech, Other (weakness) Laboratory Data (last 24 hrs) 01/12/24 01/12/24 01/12/24 10:20 10:20 10:20 WBC 16.80 H Hgb 3.4 L* Hct 11.2 L Plt Count 282 PT 54.0 H INR 5.05 APTT 46.3 H Sodium 134 L Potassium 3.7 BUN 39 H Creatinine 0.71 Glucose 122 H Total Bilirubin 1.2 H AST 50 H ALT 42 Alkaline Phosphatase 205 H Conclusions/Impression: Asessment and Plan Severe Anemia Supratherapuetic INR Recent TAVR and Left hip replacement January 05 Atrial fibrillation on chronic anticoagulation -H/H 3.4/11.2, INR 5.05 -Coumadin used for atrial fibrillation -Transfused 2 units in ED -Will require GI services for further evaluation -Transfer for GI evaluation
--- NOTE | 2024-01-13 14:08 | EKG ---
Test Date: 2024-01-12 Test Time: 10:18:39 Day Worker: KAMLESH MEASUREMENT RESULTS: Intervals: Rate: 86 WI: QRSD: 156 QT: 444 QTc: 531 [place]: P: WI: QRS: 101 T: 227 INTERPRETIVE STATEMENTS: Atrial fibrillation with premature ventricular or aberrantly conducted complexes Rightward axis Nonspecific intraventricular block Abnormal ECG Compared to ECG 12/27/2023 18:27:21 Ventricular premature complex(es) now present Right-axis deviation now present Left bundle-branch block no longer present Electronically Signed On 01-13-24 14:06:49 CDT by Johnathan Dixon
== END 2024-01-12 17:01 | disposition short-term general hospital (02) ==
LOC: ER 09:37
PROC: 30233N1 Transfusion of Nonautologous Red Blood Cells into Peripheral Vein, Percutaneous Approach (ICD-10-PCS; principal; 2024-01-12)
DX: D64.9 Anemia, unspecified (principal); D72.829 Elevated white blood cell count, unspecified; I10 Essential (primary) hypertension; I48.91 Unspecified atrial fibrillation; Z79.01 Long term (current) use of anticoagulants; Z96.642 Presence of left artificial hip joint; Z95.2 Presence of prosthetic heart valve; R79.1 Abnormal coagulation profile; Z11.52 Encounter for screening for COVID-19; Z87.891 Personal history of nicotine dependence
CPT/HCPCS: 96365; 93005; 87040 ×2; 85025; 81001; 36415; 86900; 86850; 85610; 86901; 83605; 85730; 86920 ×2; 84484; 80053; 87804 ×2; 71275; 74177; 71045; 96375; 99285; 87811; 36430; Q9967 ×2; J2270; P9016 ×2; J7050 ×2